=== PATIENT | male | born 1965 | race Caucasian/White ===

== ENCOUNTER 2016-10-12 20:14 | Emergency (ER) | payer OTHER | END 2016-10-12 20:56 | disposition home or self-care (01) | LOC: ER 20:14 | DX: H81.391 Other peripheral vertigo, right ear (principal); H66.91 Otitis media, unspecified, right ear; F41.9 Anxiety disorder, unspecified; E11.9 Type 2 diabetes mellitus without complications; I10 Essential (primary) hypertension; F17.210 Nicotine dependence, cigarettes, uncomplicated; Z79.82 Long term (current) use of aspirin; Z79.02 Long term (current) use of antithrombotics/antiplatelets; Z79.4 Long term (current) use of insulin; Z79.899 Other long term (current) drug therapy; Z88.1 Allergy status to other antibiotic agents ==